=== PATIENT | female | born 1990 | race Caucasian/White ===

== ENCOUNTER 2019-10-18 14:48 | Outpatient (CLI) | payer OTHER, SELFPAY ==
--- NOTE | 2019-10-18 14:49 | MM_ITS ---
WS: [id number] DIAGNOSTIC RIGHT DIGITAL MAMMOGRAM WITH CAD RIGHT breast ultrasound HISTORY: RT BREAST MASS/LUMP COMPARISON: None available. Technique: CC, MLO and ML views. Spot compression RIGHT CC. Breast composition: There are scattered areas of fibroglandular density. There is no mass or distort ion. No skin thickening. No suspicious calcifications. RIGHT breast ultrasound. Ultrasound is directed to the area of skin changes. There is a hypoechoic nodule measuring 6 x 3 x 7 mm which may be normal fibroglandular tissue. There is no shadowing. Benign in appearance. There is n o shadowing or skin thickening. MM/[place] [id number] IMPRESSION: BI-RADS: 3-Probably Benign FOLLOW UP: 6 Month Follow-up No significant abnormality seen by mammography or ultrasound. Due to the skin c hanges short-term follow-up is recommended. Clinically if these changes continu e to be of concern surgical evaluation can be obtained.
== END 2019-10-18 14:49 | disposition home or self-care (01) ==
LOC: RADSHAW 14:48
PROVIDERS: Family Provider Family Medicine; PCP Family Medicine; Visit Provider Family Medicine
DX: N63.10 Unspecified lump in the right breast, unspecified quadrant (principal)
CPT/HCPCS: 76642; 77065

== ENCOUNTER 2020-04-25 08:41 | Outpatient (CLI) | payer OTHER, SELFPAY ==
--- NOTE | 2020-04-25 08:46 | MM_ITS ---
WS: [id number] RIGHT DIGITAL MAMMOGRAPHY WITH CAD CLINICAL INFORMATION: RT BREAST LUMP/MASS HISTORY: Right breast lump COMPARISON: October 18, 2019 TECHNIQUE: 4 views of the right breast were obtained. FINDINGS: Scattered fibroglandular densities of the right breast. No suspicious focal mass, asymmetry, calcifications, or architectural distortion. Ultrasound is pendi ng ULTRASOUND BREAST RIGHT TECHNIQUE: Ultrasound right breast focused area of concern. CLINICAL INFORMATION: RT BREAST LUMP/MASS COMPARISON: October 18, 2019 FINDINGS: Ultrasound right breast patient directed area at 7:00, 1 cm from the nipple. Again seen is the ovoid hypoechoic lesion with suggestion of a central fatty hilum which may represen t a small lymph node but nonspecific. This is unchanged in appearance. No other suspicious abnormalit ies. This is probably benign. RECOMMEND ADDITIONAL SIX-MONTH FOLLOW-UP WITH RIGHT DIAGNOSTIC MAMMOGRAPHY AND ULTRASOUND TO CONFIRM STABILITY. MM/[place] [id number] IMPRESSION: BI-RADS: 3-Probably Benign FOLLOW UP: 6 Month Follow-up
== END 2020-04-25 08:42 | disposition home or self-care (01) ==
LOC: RADSHAW 08:43
PROVIDERS: PCP Family Medicine; Visit Provider Family Medicine
DX: N63.10 Unspecified lump in the right breast, unspecified quadrant (principal)
CPT/HCPCS: 76642; 77065

== ENCOUNTER 2020-10-24 10:19 | Outpatient (CLI) | payer OTHER, SELFPAY ==
--- NOTE | 2020-10-24 10:22 | MM_ITS ---
WS: [id number] BILATERAL DIGITAL DIAGNOSTIC MAMMOGRAM MAMMOGRAPHY WITH CAD CLINICAL INFORMATION: RT BREAST LESION/LUMP/MASS. Six-month follow-up right breast lump. New lump Rig ht axilla. COMPARISON: April 25, 2020 and October 18, 2019 TECHNIQUE: Bilateral CC, MLO, and ML views. FINDINGS: The breasts are composed of heterogeneous fibroglandular density, which can limit the detection of sm all underlying mass lesions. No suspicious mammographic findings. Right breast parenchyma is unchange d from previous. Ultrasound is pending. No suspicious abnormalities left breast. ULTRASOUND BREAST RIGHT TECHNIQUE: Ultrasound right breast focused area of concern. CLINICAL INFORMATION: RT BREAST LESION/LUMP/MASS COMPARISON: September 2019 and April 2020 FINDINGS: Ultrasound right breast 10:00 position. Again seen is the small hypoechoic lesion likely lymph node w ith an echogenic hilum unchanged from the prior 2 examinations.. This measures 6.0 x 2.7 x 5.7 mm. Area of concern near the right axillary tail is also evaluated with no suspicious abnormalities. MM/[place] [id number] IMPRESSION: BI-RADS: 2-Benign FOLLOW UP: 1 Year Follow-up Recommend return to annual screening mammography.
== END 2020-10-24 10:20 | disposition home or self-care (01) ==
LOC: RADSHAW 10:20
PROVIDERS: PCP Family Medicine; Visit Provider Family Medicine
DX: N64.9 Disorder of breast, unspecified (principal); N63.10 Unspecified lump in the right breast, unspecified quadrant
CPT/HCPCS: 76642; 77066

== ENCOUNTER → 2022-05-08 10:02 | Outpatient (BNVA) | payer SELFPAY | PROVIDERS: PCP Family Medicine; Visit Provider Family Medicine | DX: L03.90 Cellulitis, unspecified (principal); W57.XXXA Bitten or stung by nonvenomous insect and other nonvenomous arthropods, initial encounter | CPT/HCPCS: 87070; 87075; 87184; 87205 ==

== ENCOUNTER 2022-11-06 21:51 | Emergency (ER) | payer OTHER, SELFPAY ==
[2022-11-06 21:59] VITALS: BMI 32.5
--- NOTE | 2022-11-06 22:14 | ED_ITS ---
HPI - Extremity Problem General: Chief complaint: Extremity Injury, Upper Stated complaint: right shoulder injury Time Seen by Provider: 11/06/22 22:11 History of Present Illness: 32-year-old female comes in today for evaluation of injury to the right shoulder. Patient reports that she was pulling a patient up in bed when she injured her shoulder this evening. 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 Patient reports no prior injury. Patient appears nontoxic. Patient appears in mild to moderate pain. Patient is guarded with movement of the shoulder. Patient has touch sensation distally and normal cap refill. Patient denies . Patient reports no routine medications or chronic medical problems. Associated symptoms: Deny chest pain Review of Systems 2 General: Reports: 10 or more systems reviewed and unremarkable except in HPI and below Card: Denies: chest pain Resp: Denies: dyspnea GI: Denies: nausea or vomiting : Denies: difficulty voiding Musc: Reports: joint pain (Right shoulder) Physical Exam Const: COMMON NORMALS: alert HENMT: COMMON NORMALS: normocephalic HEAD & SCALP: normocephalic Neck/C-Spine: CERVICAL SPINE: Yes cervical ROM normal and No Cervical spine tenderness Resp: COMMON NORMALS: normal respiratory effort Cardio: COMMON NORMALS: regular rate RATE: regular rate Back/Pelvis: COMMON NORMALS: thoracic and lumbar spine normal to inspection Extremity: RIGHT UPPER EXTREMITY: Yes shoulder joint (Anterior shoulder tenderness) Right shoulder: Yes Right shoulder joint inspection exam, Yes palpation and Yes Right shoulder joint ROM exam (Pain with abduction) Neuro: SENSORIUM/ORIENTATION: Yes alert Skin: COMMON NORMALS: turgor normal GENERAL SKIN EXAM: turgor normal Course Vital Signs: Vital signs: Vital Signs Oxygen Delivery Me thod 11/06/22 21:59 MDM - Extremity (Nontraumatic) Medical Decision Making 32-year-old female comes in today for complaints of right anterior shoulder injury. On exam patient has tenderness to the anterior shoulder. Patient has decreased abduction due to pain. Distal pulses and sensation are intact. Vital signs are normal. Differential diagnosis includes shoulder strain, rotator cuff injury, dislocation. X-ray was unremarkable. Reviewed exam with patient with recommendations for follow-up with Workmen's Compensation provider. Patient was recommended use ice increase activity as tolerated. And follow-up with primary care or Workmen's Comp. specialist. Patient may need further evaluation with fish hatchery specialist for continued complaints. Patient reported understanding. Lab Data Radiology Impressions Shoulder X-Ray 11/06/22 22:18 IMPRESSION: No acute findings. Discharge Plan Discharge Patient Disposition: Home Clinical Impression: Right shoulder strain Qualifiers: Encounter type: initial encounter Qualified Code(s): S46.911A - Strain of unspecified muscle, fascia and tendon at shoulder and upper arm level, right arm, initial encounter Condition: Stable Prescriptions: New diclofenac potassium 50 mg tablet 50 mg PO Q8H PRN (Reason: pain) Qty: 15 0RF hydrocodone-acetaminophen 5-325 mg tablet 1 tab PO Q8H PRN (Reason: pain (scale score 7-10)) Qty: 6 0RF No Action sulfamethoxazole-trimethoprim [Bactrim DS] 800-160 mg tablet 1 tab PO BID Qty: 14 0RF cephalexin 500 mg capsule 500 mg PO TID Qty: 21 0RF Discharge Orders: Discharge ED (Routine); Ordered 11/06/22 Ordered By: Isra Cullen Referrals: Pernell Owen MD [Primary Care Provider] - Discharge Diet: Usual diet Discharge Activity: Increase activity as tolerated Patient Instructions: Shoulder Sprain (ED), Opioid Safety Activity Restrictions/Additional Instructions: Activity as tolerated. Use ice to the area on and off for the next 48 hours for pain and inflammation. Use acetaminophen and diclofenac as needed for pain. Do not use ibuprofen or naproxen with diclofenac. Use hydrocodone for severe pain. Follow-up with primary care for further instructions. Return to ED for new concerns. Follow-up with employee health for further evaluation and treatment as needed. Stand Alone Forms: Work/School Release Coding Level of Care Code ED Spot Cleaner for Shanna Wheatley
--- NOTE | 2022-11-06 22:18 | XRR_ITS ---
PROCEDURE INFORMATION: Exam: XR Right Shoulder Exam date and time: 11/06/2022 10:24 PM Age: 32 years old Clinical indication: Pain; Shoulder; Right; Additional info: Injury TECHNIQUE: Imaging protocol: Radiologic exam of the right shoulder. Views: 2 or more views. COMPARISON: No relevant prior studies available. FINDINGS: Bones/joints: Normal. Soft tissues: Normal. XR/XR shoulder RT min 2V* [id number] IMPRESSION: No acute findings.
[2022-11-06] MEDS: ketorolac 30 mg/mL INJ IM (23:14)
[2022-11-06 23:21] VITALS: BP 146/89; PULSE 86; RESP 19
== END 2022-11-07 | disposition home or self-care (01) ==
PROVIDERS: Emergency Provider Nurse Practitioner Family; PCP Family Medicine
DX: S46.911A Strain of unspecified muscle, fascia and tendon at shoulder and upper arm level, right arm, initial encounter (principal); X50.0XXA Overexertion from strenuous movement or load, initial encounter
CPT/HCPCS: 73030; 96372; 99284; J1885

== ENCOUNTER 2022-12-04 14:23 | Outpatient (CLI) | payer OTHER, SELFPAY ==
--- NOTE | 2022-12-04 14:30 | MR_ITS ---
WS: [id number] MRI RIGHT SHOULDER HISTORY: No improvement in pain or function central injury. COMPARISON: RIGHT shoulder radiograph 11/06/2022 TECHNIQUE: Multiplanar sequences of the shoulder joint are submitted. Mild increased T2 signal along the AC ligament and the surrounding capsule. No subacromial or subdelt oid fluid. No subacromial impingement. Biceps tendon normal position in the bicipital groove. No os a cromion. No rotator cuff tear or edema. No atrophy or edema within the muscles. No labral tear. No joint effus ion. Visualized deltoid muscle is normal. MR/MR shoulder RT wo con* [id number] IMPRESSION: 1. Mild acute appearing AC ligament sprain. 2. No rotator cuff tear. 3. No labral tear. No joint effusion.
== END 2022-12-04 14:24 | disposition home or self-care (01) ==
LOC: RAD 14:26
PROVIDERS: PCP Family Medicine; Visit Provider Family Medicine
DX: S46.019A Strain of muscle(s) and tendon(s) of the rotator cuff of unspecified shoulder, initial encounter (principal); S46.819A Strain of other muscles, fascia and tendons at shoulder and upper arm level, unspecified arm, initial encounter; X58.XXXA Exposure to other specified factors, initial encounter
CPT/HCPCS: 73221

== ENCOUNTER 2023-01-26 06:00 | Outpatient (RCR) | payer OTHER, SELFPAY | END 2023-02-04 23:59 | disposition home or self-care (01) | LOC: SPT 06:00 | PROVIDERS: Visit Provider Orthopaedic Surgery | DX: S43.51XD Sprain of right acromioclavicular joint, subsequent encounter (principal); X58.XXXD Exposure to other specified factors, subsequent encounter | CPT/HCPCS: 97110; 97161 ==

== ENCOUNTER → 2023-12-21 11:40 | Outpatient (BNVA) | payer OTHER, SELFPAY | PROVIDERS: PCP Family Medicine; Visit Provider Family Medicine | DX: Z13.220 Encounter for screening for lipoid disorders (principal); E11.9 Type 2 diabetes mellitus without complications; E03.9 Hypothyroidism, unspecified; Z51.81 Encounter for therapeutic drug level monitoring | CPT/HCPCS: 80053; 80061; 83036; 84439; 84443; 85025 ==

== ENCOUNTER → 2025-07-02 09:51 | Outpatient (BNVA) | payer OTHER, SELFPAY | PROVIDERS: PCP Family Medicine; Visit Provider Family Medicine | DX: Z51.81 Encounter for therapeutic drug level monitoring (principal); Z00.00 Encounter for general adult medical examination without abnormal findings; Z13.1 Encounter for screening for diabetes mellitus; Z13.6 Encounter for screening for cardiovascular disorders; D64.9 Anemia, unspecified | CPT/HCPCS: 80053; 80061; 83036; 83540; 83550; 85025 ==